=== PATIENT | male | born 1985 | race Caucasian/White ===

== ENCOUNTER 2017-03-22 22:01 | Emergency (ER) | payer OTHER ==
[2017-03-23 00:40] LABS: URINE BLOOD (Dip) POC Trace-lysed (NEGATIVE); URINE GLUCOSE (Dip) POC Negative (NEGATIVE); URINE KETONES (Dip) POC Negative (NEGATIVE); URINE LEUKOCYTE EST (Dip) POC Negative (NEGATIVE); URINE NITRITE (Dip) POC Negative (NEGATIVE); URINE TOTAL PROTEIN POC Negative (NEGATIVE)
[2017-03-23 00:40] LABS: URINE PH (Dip) POC 5.5 (5.0-8.5)
[2017-03-23 00:44] LABS: ADD MAN DIFF? NO
[2017-03-23 00:47] LABS: BASOPHIL # 0.1 10^3/ul (0.0-0.1); BASOPHILS % 0.3 % (0.0-2.0); EOSINOPHILS # 0.1 10^3/ul (0.0-0.5); EOSINOPHILS % 0.3 % (0.0-7.0); HEMATOCRIT 40.4 % (42.0-52.0); HEMOGLOBIN 14.9 g/dl (14.0-18.0); LYMPHOCYTES # 1.4 10^3/ul (0.8-2.9); LYMPHOCYTES % 8.2 % (15.0-51.0); MEAN CORPUSCULAR HEMOGLOBIN 31.2 pg (29.0-33.0); MEAN CORPUSCULAR HGB CONC 36.9 g/dl (32.0-37.0); MEAN CORPUSCULAR VOLUME 84.5 fl (82.0-101.0); MEAN PLATELET VOLUME 10.8 fl (7.4-10.4); MONOCYTE # 1.1 10^3/ul (0.3-0.9); MONOCYTES % 6.9 % (0.0-11.0); NEUTROPHIL # 13.8 10^3/ul (1.6-7.5); NEUTROPHILS % 83.8 % (39.0-77.0); PLATELET COUNT 199 10^3/UL (140-415); RED BLOOD COUNT 4.78 10^6/ul (4.70-6.10)
[2017-03-23 00:47] LABS: WHITE BLOOD COUNT 16.5 10^3/ul (4.8-10.8)
[2017-03-23 01:06] LABS: INR 0.99; PROTIME 13.2 Sec (11.9-14.9)
[2017-03-23 01:07] LABS: PARTIAL THROMBOPLASTIN TIME 33.5 Sec (25.0-35.0)
[2017-03-23 01:08] LABS: ADD UMIC YES; UR ASCORBIC ACID NEGATIVE (NEGATIVE); UR BILIRUBIN (Dip) NEGATIVE (NEGATIVE); UR BLOOD (Dip) 1+ mg/dL (NEGATIVE); UR CLARITY CLEAR (CLEAR); UR COLOR STRAW (YELLOW); UR GLUCOSE (Dip) NEGATIVE (NEGATIVE); UR KETONES (Dip) NEGATIVE (NEGATIVE); UR LEUKOCYTE ESTERASE (Dip) NEGATIVE Leu/ul (NEGATIVE); UR NITRITE (Dip) NEGATIVE (NEGATIVE); UR RBC 0 /HPF (0-5); UR SPECIFIC GRAVITY (Dip) 1.008 (1.003-1.030); UR TOTAL PROTEIN (Dip) NEGATIVE (NEGATIVE); UR UROBILINOGEN (Dip) NEGATIVE (NEGATIVE); UR WBC 0 /HPF (0-5)
[2017-03-23 01:47] LABS: LACTIC ACID 1.7 mmol/L (0.5-2.0)
[2017-03-23 01:49] LABS: ALANINE AMINOTRANSFERASE 73 IU/L (13-69); ALBUMIN 4.5 g/dl (3.3-4.9); ALBUMIN/GLOBULIN RATIO 1.15; ALKALINE PHOSPHATASE 78 IU/L (42-121); ANION GAP 18 (8-16); ASPARTATE AMINO TRANSFERASE 39 IU/L (15-46); BILIRUBIN,INDIRECT 0.6 mg/dl (0-1.1); BILIRUBIN,TOTAL 0.6 mg/dl (0.2-1.3); BLOOD UREA NITROGEN 13 mg/dl (7-20); CALCIUM 9.5 mg/dl (8.4-10.2); CARBON DIOXIDE 27 mmol/L (21-31); CHLORIDE 98 mmol/L (97-110); CREATININE 0.89 mg/dl (0.61-1.24); GLUCOSE 125 mg/dl (70-220); SODIUM 140 mmol/L (135-144); TOTAL PROTEIN 8.4 g/dl (6.1-8.1)
[2017-03-23 01:53] LABS: ETHANOL < 10.0 mg/dl
[2017-03-23 02:01] LABS: TROPONIN-I < 0.012 ng/ml (0.00-0.12)
[2017-03-23] MEDS: ACETAMINOPHEN 325 MG TAB PO (02:01)
[2017-03-23 02:21] LABS: AMPHETAMINE/METHAMPHETAMINE Negative (NEGATIVE); BARBITURATES Negative (NEGATIVE); BENZODIAZEPINES Negative (NEGATIVE); CANNABINOIDS Negative (NEGATIVE); COCAINE Negative (NEGATIVE); OPIATES Negative (NEGATIVE)
[2017-03-23] MEDS: POTASSIUM CHLORIDE (SR) 20 MEQ TAB PO ×2 (02:31→02:32)
[2017-03-23] MEDS: SOD CHLORIDE 0.9% IV (02:31)
[2017-03-23] MEDS: IOHEXOL 300MG/ML 150 ML BTL (03:21)
[2017-03-23] MEDS: SOD CHLORIDE 0.9% 100 ML (03:21)
[2017-03-23] MEDS: CEFTRIAXONE 2 GM/50 ML (PMX) 50 ML IVPB ×2 (04:06→17:30)
[2017-03-23] MEDS: VANCOMYCIN 1 GM (PMX) 250 ML IVPB (04:40)
[2017-03-23] MEDS ORDERED: DOCUSATE SODIUM 100 MG CAP PO (06:00)
[2017-03-23] MEDS ORDERED: VANCOMYCIN IV PER PHARMACY XX (06:00)
[2017-03-23] MEDS ORDERED: HYDROCODONE/APAP (5/325) TAB PO (06:00)
[2017-03-23] MEDS ORDERED: ZOLPIDEM 5 MG TAB PO (06:00)
[2017-03-23] MEDS ORDERED: ACETAMINOPHEN 325 MG TAB PO (06:00)
[2017-03-23] MEDS ORDERED: NACL 0.9% 3 ML SYG IV (06:00)
[2017-03-23] MEDS ORDERED: ONDANSETRON 4 MG INJ IV (06:00)
[2017-03-23] MEDS ORDERED: MAGNESIUM HYDROXIDE 30ML CUP PO (06:00)
[2017-03-23] MEDS ORDERED: ACYCLOVIR 500 MG in DEXTROSE 5% 100 ML IVPB (06:00)
[2017-03-23] MEDS ORDERED: KETOROLAC 30 MG INJ IV (06:00)
[2017-03-23 06:02] LABS: LACTIC ACID 2.6 mmol/L (0.5-2.0)
[2017-03-23] MEDS ORDERED: morphine 2 MG INJ IV (06:30)
[2017-03-23] MEDS: ACYCLOVIR 1,000 MG in DEXTROSE 5% 100 ML IVPB (08:00)
[2017-03-23] MEDS: DEXAMETHASONE 4 MG/ML 5 ML INJ IV ×2 (08:00→12:16)
[2017-03-23 08:25] LABS: LACTIC ACID 1.5 mmol/L (0.5-2.0)
[2017-03-23] MEDS: AMLODIPINE 10 MG TAB PO (12:12)
[2017-03-23] MEDS: METOPROLOL 100 MG TAB PO (12:12)
[2017-03-23] MEDS: FAMOTIDINE 20 MG TAB PO (12:12)
[2017-03-23] MEDS: LISINOPRIL 10 MG TAB PO (12:13)
[2017-03-23] MEDS: VANCOMYCIN 1 GM in 250 ML IVPB (12:15)
[2017-03-23] MEDS: SOD CHLORIDE 0.45% 1,000 ML IV ×2 (14:00→17:04)
[2017-03-23] MEDS: ACYCLOVIR IVPB (14:00)
[2017-03-23] MEDS: DEXTROSE 5% IVPB (14:00)
[2017-03-23] MEDS ORDERED: VANCOMYCIN 1.5 GM in DEXTROSE 5% 500 ML IVPB (17:00)
== END 2017-03-23 18:44 | disposition left against medical advice (07) ==
LOC: E/R 22:01
DX: R51 Headache (principal); R50.9 Fever, unspecified; E87.6 Hypokalemia; I10 Essential (primary) hypertension; J45.909 Unspecified asthma, uncomplicated; R07.9 Chest pain, unspecified; Z79.82 Long term (current) use of aspirin; Z87.891 Personal history of nicotine dependence
CPT/HCPCS: 36415; 70450; 70496; 71045; 80053; 80306; 80307; 81001; 81003; 83605; 84484; 85025; 85610; 85730; 87040; 87086; 87400; 93005; 93971; 96374; 96375; 96376; 99285-25

== ENCOUNTER 2017-09-24 15:48 | Emergency (ER) | payer OTHER ==
[2017-09-24] MEDS: ONDANSETRON 4 MG INJ IV (16:30)
[2017-09-24] MEDS: ACETAMINOPHEN 325 MG TAB PO (16:30)
[2017-09-24] MEDS: IBUPROFEN 600 MG TAB PO (16:30)
[2017-09-24] MEDS: MECLIZINE 12.5 MG TAB PO (16:30)
[2017-09-24] MEDS: SOD CHLORIDE 0.9% 1,000 ML IV ×2 (16:31→19:33)
[2017-09-24 16:43] LABS: ADD MAN DIFF? NO
[2017-09-24 16:44] LABS: WHITE BLOOD COUNT 21.2 10^3/ul (4.8-10.8)
[2017-09-24 16:44] LABS: BASOPHIL # 0.1 10^3/ul (0.0-0.1); BASOPHILS % 0.2 % (0.0-2.0); HEMATOCRIT 42.9 % (42.0-52.0); HEMOGLOBIN 15.6 g/dl (14.0-18.0); LYMPHOCYTES % 4.7 % (15.0-51.0); MEAN CORPUSCULAR HGB CONC 36.4 g/dl (32.0-37.0); MEAN CORPUSCULAR VOLUME 85.3 fl (82.0-101.0); MEAN PLATELET VOLUME 10.7 fl (7.4-10.4); MONOCYTE # 1.2 10^3/ul (0.3-0.9); MONOCYTES % 5.6 % (0.0-11.0); NEUTROPHIL # 18.7 10^3/ul (1.6-7.5); NEUTROPHILS % 88.2 % (39.0-77.0); PLATELET COUNT 189 10^3/UL (140-415); RED BLOOD COUNT 5.03 10^6/ul (4.70-6.10); RED CELL DISTRIBUTION WIDTH 12.5 % (11.5-14.5)
[2017-09-24 17:08] LABS: ALANINE AMINOTRANSFERASE 61 IU/L (13-69); ALBUMIN 4.5 g/dl (3.3-4.9); ALBUMIN/GLOBULIN RATIO 1.25; ALKALINE PHOSPHATASE 65 IU/L (42-121); ANION GAP 15 (8-16); ASPARTATE AMINO TRANSFERASE 41 IU/L (15-46); BLOOD UREA NITROGEN 11 mg/dl (7-20); CALCIUM 8.7 mg/dl (8.4-10.2); CARBON DIOXIDE 29 mmol/L (21-31); CHLORIDE 96 mmol/L (97-110); CREATININE 0.84 mg/dl (0.61-1.24); GLUCOSE 114 mg/dl (70-220); LIPASE 62 U/L (23-300); POTASSIUM 3.3 mmol/L (3.5-5.1); SODIUM 137 mmol/L (135-144); TOTAL PROTEIN 8.1 g/dl (6.1-8.1)
[2017-09-24 18:48] LABS: ADD UMIC YES; UR ASCORBIC ACID NEGATIVE (NEGATIVE); UR BILIRUBIN (Dip) NEGATIVE (NEGATIVE); UR BLOOD (Dip) 1+ mg/dL (NEGATIVE); UR CLARITY CLEAR (CLEAR); UR COLOR STRAW (YELLOW); UR GLUCOSE (Dip) NEGATIVE (NEGATIVE); UR KETONES (Dip) NEGATIVE (NEGATIVE); UR LEUKOCYTE ESTERASE (Dip) NEGATIVE Leu/ul (NEGATIVE); UR NITRITE (Dip) NEGATIVE (NEGATIVE); UR RBC 0 /HPF (0-5); UR SPECIFIC GRAVITY (Dip) 1.006 (1.003-1.030); UR TOTAL PROTEIN (Dip) NEGATIVE (NEGATIVE); UR UROBILINOGEN (Dip) NEGATIVE (NEGATIVE); UR WBC 0 /HPF (0-5)
[2017-09-24] MEDS: POTASSIUM CHLORIDE (SR) 20 MEQ TAB PO (19:32)
== END 2017-09-24 20:15 | disposition home or self-care (01) ==
LOC: FTE 15:48
DX: K52.9 Noninfective gastroenteritis and colitis, unspecified (principal); J45.909 Unspecified asthma, uncomplicated; I10 Essential (primary) hypertension; Z87.891 Personal history of nicotine dependence; Z79.82 Long term (current) use of aspirin
CPT/HCPCS: 36415; 70450; 80053; 81001; 83690; 85025; 96374; 99285-25

== ENCOUNTER 2017-09-26 15:55 | Observation (INO) | payer OTHER ==
[2017-09-26 17:33] LABS: ADD MAN DIFF? NO
[2017-09-26] MEDS: SODIUM CHLORIDE 0.9% 1L BAG IV* (17:35)
[2017-09-26 17:43] LABS: WHITE BLOOD COUNT 13.4 10^3/ul (4.8-10.8)
[2017-09-26 17:43] LABS: BASOPHILS % 0.2 % (0.0-2.0); EOSINOPHILS % 0.2 % (0.0-7.0); HEMATOCRIT 41.3 % (42.0-52.0); HEMOGLOBIN 14.6 g/dl (14.0-18.0); LYMPHOCYTES % 14.9 % (15.0-51.0); MEAN CORPUSCULAR HEMOGLOBIN 29.9 pg (29.0-33.0); MEAN CORPUSCULAR HGB CONC 35.4 g/dl (32.0-37.0); MEAN CORPUSCULAR VOLUME 84.6 fl (82.0-101.0); MEAN PLATELET VOLUME 10.6 fl (7.4-10.4); MONOCYTE # 1.2 10^3/ul (0.3-0.9); MONOCYTES % 8.7 % (0.0-11.0); NEUTROPHIL # 10.1 10^3/ul (1.6-7.5); NEUTROPHILS % 75.3 % (39.0-77.0); PLATELET COUNT 163 10^3/UL (140-415); RED BLOOD COUNT 4.88 10^6/ul (4.70-6.10); RED CELL DISTRIBUTION WIDTH 12.9 % (11.5-14.5)
[2017-09-26] MEDS: CLINDAMYCIN 900 MG/D5W (PMX) 50 ML IVPB (17:51)
[2017-09-26 17:59] LABS: ALANINE AMINOTRANSFERASE 49 IU/L (13-69); ALBUMIN/GLOBULIN RATIO 1.11; ALKALINE PHOSPHATASE 60 IU/L (42-121); ANION GAP 12 (8-16); ASPARTATE AMINO TRANSFERASE 33 IU/L (15-46); BILIRUBIN,INDIRECT 0.9 mg/dl (0-1.1); BILIRUBIN,TOTAL 0.9 mg/dl (0.2-1.3); BLOOD UREA NITROGEN 7 mg/dl (7-20); CALCIUM 8.6 mg/dl (8.4-10.2); CARBON DIOXIDE 30 mmol/L (21-31); CHLORIDE 99 mmol/L (97-110); CREATINE KINASE 153 IU/L (23-200); CREATININE 0.73 mg/dl (0.61-1.24); GLUCOSE 106 mg/dl (70-220); POTASSIUM 3.5 mmol/L (3.5-5.1); SODIUM 137 mmol/L (135-144); TOTAL PROTEIN 7.6 g/dl (6.1-8.1)
[2017-09-26] MEDS: ACETAMINOPHEN 325 MG TAB PO (18:02)
[2017-09-26 18:04] LABS: INR 1.14; PROTIME 14.8 Sec (11.9-14.9); PT RATIO 1.2
[2017-09-26 18:05] LABS: PARTIAL THROMBOPLASTIN TIME 33.8 Sec (25.0-35.0)
[2017-09-26] MEDS: CIPROFLOXACIN 400MG/D5W 200 ML IVPB (18:05)
[2017-09-26 18:09] LABS: LACTIC ACID 2.1 mmol/L (0.5-2.0)
[2017-09-26 18:12] LABS: TROPONIN-I < 0.010 ng/ml (0.000-0.120)
[2017-09-26] MEDS: ONDANSETRON 4 MG INJ IV (18:53)
[2017-09-26] MEDS: morphine 4 MG/ML VIAL IV (18:54)
[2017-09-26] MEDS: VANCOMYCIN 1 GM (PMX) 250 ML IVPB (20:12)
[2017-09-26] MEDS ORDERED: DOCUSATE SODIUM 100 MG CAP PO (21:00)
[2017-09-26] MEDS ORDERED: BISACODYL (EC) 5 MG TAB PO (21:00)
[2017-09-26] MEDS ORDERED: ONDANSETRON 4 MG TAB PO (21:00)
[2017-09-26] MEDS ORDERED: NACL 0.9% 3 ML SYG IV (21:00)
[2017-09-26] MEDS ORDERED: VANCOMYCIN IV PER PHARMACY XX (21:00)
[2017-09-26] MEDS ORDERED: MAGNESIUM HYDROXIDE 30ML CUP PO (21:00)
[2017-09-26] MEDS: ENOXAPARIN 40 MG/0.4 ML SYG SC (21:54)
[2017-09-26] MEDS: FAMOTIDINE 20 MG TAB PO (21:54)
[2017-09-26] MEDS: CIPROFLOXACIN 500 MG TAB PO (21:54)
[2017-09-26 22:23] LABS: LACTIC ACID 1.7 mmol/L (0.5-2.0)
[2017-09-26] MEDS: VANCOMYCIN 1 GM in 250 ML IVPB (22:27)
[2017-09-27] MEDS: ACETAMINOPHEN 325 MG TAB PO (01:11)
[2017-09-27] MEDS: NS + KCL 20 MEQ 1,000 ML IV ×3 (03:44→16:39)
[2017-09-27 06:02] LABS: ADD MAN DIFF? NO
[2017-09-27 06:07] LABS: BASOPHILS % 0.4 % (0.0-2.0); EOSINOPHILS # 0.1 10^3/ul (0.0-0.5); EOSINOPHILS % 1.1 % (0.0-7.0); HEMATOCRIT 35.4 % (42.0-52.0); HEMOGLOBIN 12.4 g/dl (14.0-18.0); LYMPHOCYTES # 2.4 10^3/ul (0.8-2.9); LYMPHOCYTES % 25.8 % (15.0-51.0); MEAN CORPUSCULAR HEMOGLOBIN 30.8 pg (29.0-33.0); MEAN CORPUSCULAR VOLUME 88.1 fl (82.0-101.0); MEAN PLATELET VOLUME 11.2 fl (7.4-10.4); NEUTROPHIL # 5.6 10^3/ul (1.6-7.5); NEUTROPHILS % 60.9 % (39.0-77.0); PLATELET COUNT 147 10^3/UL (140-415); RED BLOOD COUNT 4.02 10^6/ul (4.70-6.10)
[2017-09-27 06:07] LABS: WHITE BLOOD COUNT 9.1 10^3/ul (4.8-10.8)
[2017-09-27 06:40] LABS: CREATINE KINASE 99 IU/L (23-200)
[2017-09-27 06:41] LABS: ANION GAP 9 (8-16); BLOOD UREA NITROGEN 7 mg/dl (7-20); CALCIUM 7.7 mg/dl (8.4-10.2); CARBON DIOXIDE 29 mmol/L (21-31); CHLORIDE 106 mmol/L (97-110); CREATININE 0.66 mg/dl (0.61-1.24); GLUCOSE 97 mg/dl (70-220); POTASSIUM 3.2 mmol/L (3.5-5.1); SODIUM 141 mmol/L (135-144)
[2017-09-27 06:45] LABS: HEMOGLOBIN A1C 5.4 % (0-5.9)
[2017-09-27 06:53] LABS: CK INDEX 0.3; CK-MB 0.29 ng/ml (0.0-2.4); TROPONIN-I < 0.010 ng/ml (0.000-0.120)
[2017-09-27 06:58] LABS: FREE THYROXINE INDEX (Calc) 3.19 ug/ml (0.65-3.89); T3 UPTAKE 37.1 % (23.5-40.5); T4 (THYROXINE) 8.6 ug/dl (5.5-11.0)
[2017-09-27] MEDS: FAMOTIDINE 20 MG TAB PO ×2 (08:16→20:23)
[2017-09-27] MEDS: ENOXAPARIN 40 MG/0.4 ML SYG SC (08:18)
[2017-09-27] MEDS: CLINDAMYCIN 900 MG/D5W (PMX) 50 ML IVPB (08:22)
[2017-09-27] MEDS: VANCOMYCIN 1.5 GM in SOD CHLORIDE 0.9% 250 ML IVPB ×2 (09:37→16:39)
[2017-09-27] MEDS: HYDROCODONE/APAP (5/325) TAB PO (13:26)
[2017-09-27] MEDS: LACTOBACILLUS RHAMNOSUS CAP PO ×2 (13:26→20:23)
[2017-09-27] MEDS: LEVOFLOXACIN 500MG/D5W (PMX) 100 ML IVPB (14:10)
[2017-09-27] MEDS: LISINOPRIL 20 MG TAB PO (20:23)
[2017-09-27] MEDS: METOPROLOL 100 MG TAB PO (20:23)
[2017-09-28] MEDS: VANCOMYCIN 1.5 GM in SOD CHLORIDE 0.9% 250 ML IVPB ×2 (00:52→08:12)
[2017-09-28] MEDS: NS + KCL 20 MEQ 1,000 ML IV (00:53)
[2017-09-28] MEDS: ZOLPIDEM 5 MG TAB PO (03:22)
[2017-09-28 07:34] LABS: ADD MAN DIFF? NO
[2017-09-28 07:37] LABS: BASOPHILS % 0.5 % (0.0-2.0); EOSINOPHILS # 0.2 10^3/ul (0.0-0.5); EOSINOPHILS % 2.9 % (0.0-7.0); HEMOGLOBIN 13.1 g/dl (14.0-18.0); LYMPHOCYTES # 2.2 10^3/ul (0.8-2.9); LYMPHOCYTES % 26.8 % (15.0-51.0); MEAN CORPUSCULAR HEMOGLOBIN 30.9 pg (29.0-33.0); MEAN CORPUSCULAR HGB CONC 35.4 g/dl (32.0-37.0); MEAN CORPUSCULAR VOLUME 87.3 fl (82.0-101.0); MEAN PLATELET VOLUME 10.8 fl (7.4-10.4); MONOCYTE # 0.8 10^3/ul (0.3-0.9); MONOCYTES % 9.7 % (0.0-11.0); NEUTROPHIL # 4.8 10^3/ul (1.6-7.5); NEUTROPHILS % 58.3 % (39.0-77.0); PLATELET COUNT 199 10^3/UL (140-415); RED BLOOD COUNT 4.24 10^6/ul (4.70-6.10); RED CELL DISTRIBUTION WIDTH 12.9 % (11.5-14.5)
[2017-09-28 07:37] LABS: WHITE BLOOD COUNT 8.3 10^3/ul (4.8-10.8)
[2017-09-28 08:05] LABS: MAGNESIUM 1.9 mg/dl (1.7-2.5)
[2017-09-28 08:09] LABS: ANION GAP 10 (8-16); BLOOD UREA NITROGEN 6 mg/dl (7-20); CALCIUM 8.4 mg/dl (8.4-10.2); CARBON DIOXIDE 31 mmol/L (21-31); CHLORIDE 103 mmol/L (97-110); CREATININE 0.77 mg/dl (0.61-1.24); GLUCOSE 105 mg/dl (70-220); POTASSIUM 3.5 mmol/L (3.5-5.1); SODIUM 140 mmol/L (135-144)
[2017-09-28] MEDS: FAMOTIDINE 20 MG TAB PO (08:12)
[2017-09-28] MEDS: ASPIRIN (EC) 81 MG TAB PO (08:12)
[2017-09-28] MEDS: LACTOBACILLUS RHAMNOSUS CAP PO (08:12)
[2017-09-28] MEDS: LISINOPRIL 20 MG TAB PO (08:13)
[2017-09-28] MEDS: METOPROLOL 100 MG TAB PO (08:13)
[2017-09-28] MEDS: AMLODIPINE 10 MG TAB PO (08:13)
[2017-09-28] MEDS: ENOXAPARIN 40 MG/0.4 ML SYG SC (08:26)
[2017-09-28] MEDS ORDERED: TRIMETHOPRIM/SULFAMETHOX (DS) TAB PO (13:00)
[2017-09-28] MEDS ORDERED: LEVOFLOXACIN 500 MG TAB PO (13:00)
== END 2017-09-28 15:25 | disposition home or self-care (01) ==
LOC: 2NE 19:46 → FTE 15:55
PROVIDERS: Internal Medicine
DX: L03.116 Cellulitis of left lower limb (principal); I10 Essential (primary) hypertension; J45.909 Unspecified asthma, uncomplicated; E78.00 Pure hypercholesterolemia, unspecified; F17.290 Nicotine dependence, other tobacco product, uncomplicated; Z79.82 Long term (current) use of aspirin; Z88.0 Allergy status to penicillin
CPT/HCPCS: 71045; 73700; 80048; 80053; 80202; 82550; 82553; 83036; 83605; 83735; 84436; 84479; 84484; 85025; 85610; 85730; 87040; 87086; 93005; 93971; 96365; 96366; 96375; 99217; 99291-25; G0378